=== PATIENT | male | born 1970 | race Caucasian/White ===

== ENCOUNTER 2018-02-17 06:57 | Emergency (ER) | payer BC ==
[~2018-02-17] VITALS: Ht 182.9 cm; Wt 78.0 kg
[2018-02-17 07:06] VITALS: Ht 182.9 cm; Wt 78.0 kg
[2018-02-17 08:05] VITALS: BP 148/88
== END 2018-02-17 08:05 | disposition home or self-care (01) ==
LOC: ED 06:57
DX: M75.101 Unspecified rotator cuff tear or rupture of right shoulder, not specified as traumatic (principal)